=== PATIENT | male | born 1985 | race Caucasian/White ===

== ENCOUNTER 2017-05-13 17:15 | Emergency (ER) | payer SELFPAY ==
--- NOTE | 2017-05-13 17:56 | Emergency Department Report ---
HPI - General Chief Complaint: Chest Pain Time Seen by Provider: 05/13/17 17:42 - HPI HPI: Room 23 The patient is a 32-year-old male presenting with a chief complaint of chest pain. The patient states for the past 5 days she's had intermittent left-sided chest pain described as a pinching in nature. Patient states his pain is associated with nausea and diaphoresis. Patient denies shortness of breath, vomiting, pleurisy or recent flights/long car trips. The patient states last week difficulty speaking for approximately 2 hours and had weakness in both legs. The patient states he called EMS but never went to the hospital. The patient states she's never had a stress test or cardiac catheterization Location: Left chest, see above Duration: [See above] Quality: Pinching Severity: 10 Modifying factors: [see above] Context: [see above] Mode of transportation: [not driving] ED Past Medical Hx - Past Medical History Previous Medical History?: Yes Hx Hypertension: Yes Additional medical history: pre-diabetes, hyperlipidemia, obesity - Surgical History Past Surgical History?: No Hx Appendectomy: Yes Additional Surgical History: Corneal surgery - Family History Family history: no significant - Social History Smoking Status: Never Smoker Substance Use Type: None (denies illicit drug use), Alcohol (occasional) ED Review of Systems ROS: Stated complaint: CHEST PAIN Other details as noted in HPI Constitutional: diaphoresis Respiratory: denies: shortness of breath Cardiovascular: chest pain Gastrointestinal: nausea. denies: vomiting Neurological: weakness, other (dysarthria). denies: headache Physical Exam - Physical Exam Vital Signs: Vital Signs 05/13/17 17:16 Temperature 99.6 F Pulse Rate 106 H Respiratory 16 Rate Blood Pressure 197/89 O2 Sat by Pulse 96 Oximetry Physical Exam: GENERAL: The patient is well-developed well-nourished male lying on stretcher not appearing to be in acute distress. [] HEENT: Normocephalic. Atraumatic. Extraocular motions are intact. Patient has moist mucous membranes. NECK: Supple. No meningitic signs are noted. There is no adenopathy noted. CHEST/LUNGS: Clear to auscultation. There is no respiratory distress noted. HEART/CARDIOVASCULAR: Regular. There is no tachycardia. There is no gallop rub or murmur. ABDOMEN: Abdomen is soft, nontender. Patient has normal bowel sounds. There is no abdominal distention. SKIN: There is no rash. There is no edema. There is no diaphoresis. NEURO: The patient is awake, alert, and oriented. The patient is cooperative. The patient has no focal neurologic deficits. The patient has normal speech. Cranial nerves II through XII grossly intact, no drift. Moves all extremities well. Normal Sensation throughout MUSCULOSKELETAL:There is no evidence of acute injury. ED Course Vital Signs 05/13/17 17:16 Temperature 99.6 F Pulse Rate 106 H Respiratory 16 Rate Blood Pressure 197/89 O2 Sat by Pulse 96 Oximetry ED Medical Decision Making - Lab Data Result diagrams: 05/13/17 17:49 05/13/17 17:49 Laboratory Tests 05/13/17 05/13/17 05/13/17 17:49 17:49 17:49 WBC 12.5 H RBC 5.53 H Hgb 16.6 H Hct 48.3 H MCV 87 MCH 30 MCHC 34 RDW 12.8 L Plt Count 192 Lymph % (Auto) 14.6 [place] % (Auto) 6.7 Eos % (Auto) 1.1 Baso % (Auto) 0.6 Lymph # 1.8 [place] # 0.8 Eos # 0.1 Baso # 0.1 Seg Neutrophils % 77.0 H Seg Neutrophils # 9.6 H PT 12.1 L INR 0.86 L APTT 27.2 D-Dimer 177.80 Sodium 138 Potassium 3.9 Chloride 97.1 L Carbon Dioxide 27 Anion Gap 18 BUN 14 Creatinine 0.8 Estimated GFR > 60 BUN/Creatinine Ratio 18 Glucose 93 Calcium 9.1 Total Bilirubin 0.90 AST 20 ALT 43 Alkaline Phosphatase 107 Troponin T < 0.010 Total Protein 7.0 Albumin 4.2 Albumin/Globulin Ratio 1.5 - EKG Data -: EKG Interpreted by Me EKG shows normal: sinus rhythm Rate: normal - EKG Data When compared to previous EKG there are: previous EKG unavailable Interpretation: nonspecific ST-T wave regina (T inversion in leads 3, aVF) - Radiology Data Radiology results: pending (CT head radiologist reading), image reviewed (chest x-ray, CT head) interpreted by ut: Chest x-ray-no definite focal infiltrate. Questionable right lower lobe atelectasis. No pneumothorax CT head (read by myself)-no gross hemorrhage seen - Differential Diagnosis ACS, GERD, pericarditis, TIA, PE Critical care attestation.: If time is entered above; I have spent that time in minutes in the direct care of this critically ill patient, excluding procedure time. ED Disposition Clinical Impression: Chest pain Disposition: OP ADMIT IP TO THIS HOSP Is pt being admited?: Yes Does the pt Need Aspirin: Yes Condition: Fair Instructions: Chest Pain (ED) Time of Disposition: 19:50 (hospitalist paged (Dr Ingram))
[2017-05-13 18:05] LABS: Basophils # (Auto) 0.1 K/mm3 (0.0-0.1); Basophils % (Auto) 0.6 % (0.0-1.8); Eosinophils # (Auto) 0.1 K/mm3 (0.0-0.4); Eosinophils % (Auto) 1.1 % (0.0-4.3); Hematocrit 48.3 % (35.5-45.6); Hemoglobin 16.6 gm/dl (11.8-15.2); Lymphocytes # (Auto) 1.8 K/mm3 (1.2-5.4); Lymphocytes % (Auto) 14.6 % (13.4-35.0); Mean Corpuscular HGB Conc 34 % (32-34); Mean Corpuscular Hemoglobin 30 pg (28-32); Mean Corpuscular Volume 87 fl (84-94); Monocytes # (Auto) 0.8 K/mm3 (0.0-0.8); Monocytes % (Auto) 6.7 % (0.0-7.3); Platelet Count 192 K/mm3 (140-440); Red Blood Count 5.53 M/mm3 (3.65-5.03); Red Cell Distribution Width 12.8 % (13.2-15.2)
[2017-05-13] MEDS ORDERED: NITRO-BID 2% TP ONE (18:13)
[2017-05-13] MEDS ORDERED: MORPHINE IV ONE (18:13)
[2017-05-13] MEDS ORDERED: ZOFRAN IV ONE (18:13)
[2017-05-13 18:29] LABS: INR 0.86 (0.87-1.13)
[2017-05-13 18:30] LABS: Partial Thromboplastin Time 27.2 Sec. (24.2-36.6)
[2017-05-13 18:39] LABS: Alanine Aminotransferase 43 units/L (7-56); Albumin 4.2 g/dL (3.9-5); BUN/Creatinine Ratio 18; Blood Urea Nitrogen 14 mg/dL (9-20); Calcium 9.1 mg/dL (8.4-10.2); Hemolysis Index 31
--- NOTE | 2017-05-13 18:51 | XRay Report ---
FINAL REPORT EXAM: XR CHEST 1V AP HISTORY: Chest Pain TECHNIQUE: Frontal portable examination of the chest PRIORS: None FINDINGS: Limited examination due to prominent soft tissue attenuation. There is no pulmonary consolidation, pleural effusion, or pneumothorax. The regional skeleton is without acute pathology. The cardiac silhouette size is slightly enlarged without evidence of vascular congestion or pulmonary edema. IMPRESSION: No acute pulmonary disease in the visualized chest Slight cardiomegaly
[2017-05-13 19:19] VITALS: BP 119/79
[2017-05-13] MEDS ORDERED: ASPIRIN PO ONE (19:51)
--- NOTE | 2017-05-13 20:03 | Cat Scan Report ---
FINAL REPORT PROCEDURE: CT head without contrast. TECHNIQUE: Computerized tomography of the head was performed without contrast material. HISTORY: Intermittent dysarthria, weakness. COMPARISON: No prior studies are available for comparison. FINDINGS: The ventricles are normal in size. The iglesias matter and white matter appear normal. There are no mass lesions. There is no intracranial hemorrhage. The calvarium appears intact. The mastoid air cells and paranasal sinuses are clear as far as visualized. IMPRESSION: Normal study.
--- NOTE | 2017-05-13 20:09 | Event Note ---
Date: 05/13/17 Evaluated for L side Chest pain since am Patient lifts heavy objects L costodhondral tenderness present Troponin normal Imp costochondritis F/u with cardiology as outpatient Dr Hatfield Stress test arranged as outpatient at [facility] Mobic 7.5 mg po Bid
== END 2017-05-13 20:27 | disposition admitted as inpatient to this hospital (09) ==
LOC: EDBD → ED 17:15
DX: R07.89 Other chest pain (principal); I10 Essential (primary) hypertension; E78.5 Hyperlipidemia, unspecified; R53.1 Weakness
CPT/HCPCS: 36415; 70450; 71045; 80053; 84484; 85025; 85379; 85610; 85730; 93005; 93010; 96374; 96375; 99285; J2270; J2405